=== PATIENT | female | born 1990 | race Caucasian/White ===

== ENCOUNTER 2016-08-05 04:55 | Emergency (ER) | payer OTHER ==
[~2016-08-05] VITALS: Ht 162.6 cm; Wt 65.5 kg
[2016-08-05 05:01] VITALS: Ht 162.6 cm; Wt 65.5 kg
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
--- NOTE | 2016-08-05 05:50 | RADRPT ---
PROCEDURE: XR Forearm. CLINICAL INDICATION: Pain following injury TECHNIQUE: AP and lateral views of the right forearm were obtained. COMPARISON: No prior studies are available for comparison. FINDINGS: There is normal mineralization and alignment. No fracture or osseous lesion is identified. The joint spaces are well maintained. No periostitis or osteochondral lesion is identified. The soft tissue s are unremarkable. IMPRESSION: Unremarkable right forearm x-rays. RPTAT: HH .Erica Monk MD, MD Date Time Electronically viewed and signed by .Erica Monk MD, MD on 08/05/2016 05:50 .G/
--- NOTE | 2016-08-05 05:50 | RADRPT ---
PROCEDURE: XR Hand. CLINICAL INDICATION: Right hand pain following injury. TECHNIQUE: Three views of the right hand were obtained. COMPARISON: No prior studies are available for comparison. FINDINGS: The osseous structures demonstrate normal alignment and mineralization. No acute fracture or disloc ation is seen. The joint spaces are well preserved. No significant soft tissue abnormalities are a ppreciated. IMPRESSION: 1. Unremarkable right hand x-ray series. 2. No acute fracture or dislocation is seen. RPTAT: HH .Erica Monk MD, MD Date Time Electronically viewed and signed by .Erica Monk MD, on 08/05/2016 05:49 .G/
--- NOTE | 2016-08-05 05:53 | RADRPT ---
PROCEDURE: XR Left rib series. CLINICAL INDICATION: Pain following injury. TECHNIQUE: 3 views of the left rib cage and an AP view of the chest are available for review COMPARISON: None available FINDINGS: No acute fracture or dislocation is seen. No radiopaque foreign body is identified. No focal airspa ce opacity, pleural effusion or pneumothorax is seen. The cardiothymic silhouette is within normal limits for size. IMPRESSION: Unremarkable left rib cage x-ray series. RPTAT: HH .Erica Monk MD, MD Date Time Electronically viewed and signed by .Erica Monk MD, MD on 08/05/2016 05:52 .G/
[2016-08-05] MEDS ORDERED: ACET500C5 PO (05:55)
[2016-08-05] MEDS ORDERED: CYCL-319 PO (05:55)
[2016-08-05] MEDS ORDERED: HYDR-906 PO (05:55)
--- NOTE | 2016-08-05 06:07 | RADRPT ---
PROCEDURE: CT brain without contrast. CLINICAL INDICATION: Injury and pain. TECHNIQUE: CT scan of the brain was performed on a multi-detector high-resolution CT scanner. Co ntiguous axial images were obtained from the skull base to the vertex without intravenous contrast. Coronal and sagittal reformatted images were also obtained. Images were reviewed on the PACS works tation. One or more of the following dose reduction techniques were used: - Automated exposure control. - Adjustment of the mA and/or kV according to patient size. - Use of iterative reconstruction technique. Exam CTD/vol = 45.01 mGy. Total exam DLP = 720.23 mGy-cm. COMPARISON: None. FINDINGS: The ventricles and cortical sulci are within normal limits for patient's age. There are no areas of abnormal attenuation within the brain parenchyma. There is no mass effect or midline shift. There is no intracranial hemorrhage or abnormal extra-axial collection. The calvarium is intact. There is no evidence of fracture. Visualized paranasal sinuses and mastoid air cells are clear. IMPRESSION: No acute intracranial abnormality identified. .Davon Morales MD, MD Date Time Electronically viewed and signed by .Davon Morales MD, MD on 08/05/2016 06:07 .T/
--- NOTE | 2016-08-05 06:11 | RADRPT ---
PROCEDURE: CT facial bones without contrast. CLINICAL INDICATION: Injury and pain. TECHNIQUE: CT scan of the facial bones was performed [facility] Contiguous axial images were obtained without intravenous contrast. Coronal and sagittal refor matted images were also obtained. Images were reviewed on the PACS workstation. One or more of the following dose reduction techniques were used: - Automated exposure control. - Adjustment of the mA and/or kV according to patient size. - Use of iterative reconstruction technique. Exam CTD/vol = 29.45 mGy. Total exam DLP = 532.77 mGy-cm. COMPARISON: None. FINDINGS: There is no acute fracture. The nasal bones are intact. Bilateral orbital rims, zygoma and zygomat ic arches are intact. The pterygoid plates are intact. The mandible and maxilla are within normal l imits. Bilateral temporomandibular joints are within normal limits. Paranasal sinuses are clear. There are no air-fluid levels. Bilateral orbital globes are symmetric and within normal limits. The extraocular muscles are symmet quirino and of normal caliber. Preseptal spaces are within normal limits. Retrobulbar fat are clear. Bilateral optic nerves and superior ophthalmic veins are within normal limits. IMPRESSION: No evidence of fracture. .Davon Morales MD, Date Time Electronically viewed and signed by .Davon Morales MD, MD on 08/05/2016 06:11 .T/
--- NOTE | 2016-08-05 06:16 | RADRPT ---
PROCEDURE: CT Lumbar Spine without contrast. CLINICAL INDICATION: Back pain. TECHNIQUE: CT scan of the lumbar spine [facility] Contiguous axial images were obtained without intravenous contrast. Coronal and sagittal refor matted images were also obtained. Images were reviewed on the PACS workstation. One or more of the following dose reduction techniques were used: - Automated exposure control. - Adjustment of the mA and/or kV according to patient size. - Use of iterative reconstruction technique. Exam CTD/vol = 9.75 mGy. Total exam DLP = 348.62 mGy-cm. COMPARISON: None. FINDINGS: Lumbar vertebral body heights and alignment are within normal limits. There is no acute fracture or subluxation. At T12-L1, the disk height is within normal limits. There is no central canal or neural foraminal s tenosis. At L1-L2, the disk height is within normal limits. There is no central canal or neural foraminal st enosis. At L2-L3, the disk height is within normal limits. There is no central canal or neural foraminal st enosis. At L3-L4, the disk height is within normal limits. There is no central canal or neural foraminal st enosis. At L4-L5, the disk height is within normal limits. There is no central canal or neural foraminal st enosis. At L5-S1, the disk height is within normal limits. There is no central canal or neural foraminal st enosis. There is no paraspinal mass or collection. IMPRESSION: Unremarkable CT scan of the lumbar spine. .Davon Morales MD, MD Date Time Electronically viewed and signed by .Davon Morales MD, MD on 08/05/2016 06:16 .T/
[2016-08-05] MEDS ORDERED: IBUPROFEN 800 MG TAB PO ONE (06:30)
[2016-08-05 06:55] VITALS: BP 118/78; PULSE 94; RESP 18; TEMP 98.4
== END 2016-08-05 06:55 | disposition home or self-care (01) ==
LOC: FTE 04:55
DX: S00.03XA Contusion of scalp, initial encounter (principal); S20.212A Contusion of left front wall of thorax, initial encounter; S60.221A Contusion of right hand, initial encounter; S50.11XA Contusion of right forearm, initial encounter; S39.92XA Unspecified injury of lower back, initial encounter; F17.210 Nicotine dependence, cigarettes, uncomplicated; Y08.89XA Assault by other specified means, initial encounter
CPT/HCPCS: 70450; 70486; 71100; 72131; 73090; 73130; Z7610